=== PATIENT | male | born 1960 | race Caucasian/White ===

== ENCOUNTER 2017-02-19 19:03 | Emergency (ER) | payer MEDICARE ==
[~2017-02-19 19:03] MED LIST: ALBUTEROL5 INH; ALDROXICON PO; AMIT10 PO; BACDS PO; COMBIVENT RESPIM4 GM INH; DULERA 200 MCG/13 GM INH; DUONEB INH; FLORASTOR250 MG PO; HABIT21 TOP; K500 PO; LISINOPRIL40 MG PO; MIRALAXPKT PO; NATURA2 OP; NICODERM C21 MG/241 TOP; PERCOCET1 TA4 PO; PROTONIX PO; ROXICODONE15 MG PO; SEPTRA1 TAB PO; T PO; ZYVOXPO PO
[2017-02-19 21:10] LABS: BASOPHILS 0.8 %; BASOPHILS ABSOLUTE 0.06 10/3/uL (0.0-0.16); EOSINOPHILS 2.7 %; EOSINOPHILS ABSOLUTE 0.21 10/3/uL (0.0-0.53); IMMATURE GRANULOCYTES 0.1 %; IMMATURE GRANULOCYTES ABSOLUTE 0.01 10/3/uL (0.0-0.11); LYMPHOCYTES 25.6 %; LYMPHOCYTES ABSOLUTE 2.01 10/3/uL (0.67-4.30); MEAN CORPUS HGB CONC 33.3 g/dL (32.0-36.0); MEAN CORPUSCULAR HEMOGLOB 31.8 pg (26.0-34.0); MEAN CORPUSCULAR VOLUME 95.3 fL (80-100); MEAN PLATELET VOLUME 9.2 fL (9.2-13.0); MONOCYTES 8.4 %; MONOCYTES ABSOLUTE 0.66 10/3/uL (0.21-1.20); NEUTROPHILS 62.4 %; NEUTROPHILS ABSOLUTE 4.91 10/3/uL (2.02-8.40); PLATELET COUNT 234 10/3/uL (150-400); RBC DISTRIBUTION WIDTH 14.6 % (12.0-16.0); RED CELL COUNT 4.72 10/6/uL (4.7-6.1); WHITE BLOOD CELLS 7.9 10/3/uL (4.5-10.5)
[2017-02-19 21:11] LABS: MANUAL DIFF NO %
[2017-02-19 21:27] LABS: ALBUMIN 3.1 G/DL (3.5-5.0); ALKALINE PHOSPHATASE 95 U/L (45-117); BUN (BLOOD UREA NITROGEN) 10 MG/DL (6-23); CALCIUM, SERUM 8.5 MG/DL (8.5-10.4); CHLORIDE, SERUM 108 MMOL/L (96-112); CO2 (CARBON DIOXIDE) 30 MMOL/L (24-34); GFR AFRICAN AMERICAN 111 ML/MIN (>=60); GFR NON AFRICAN AMERICAN 96 ML/MIN (>=60); GLOBULIN 3.1 G/DL (2.5-4.1); GLUCOSE, SERUM 88 MG/DL (60-99); SGOT(AST) 10 U/L (5-40); SGPT(ALT) 18 U/L (5-65); SODIUM, SERUM 141 MMOL/L (135-148); TOTAL BILIRUBIN 0.8 MG/DL (0-1.2); TOTAL PROTEIN 6.2 G/DL (6.0-8.5)
[2017-02-19 22:27] LABS: ASCORBIC ACID (UR NOT ORDER) NEG (NEG); BILIRUBIN, URINE NEGATIVE (NEG); ER URINALYSIS TAT 0 Hrs 12 Mins; KETONE, URINE NEGATIVE (NEG); LEUKOCYTE ESTERASE(NOT OR NEG (NEG); NITRITE (URINE) NEG (NEG); WBC (NOT ORDERED) (RFLEX) 1 (0-5)
[2017-06-06] MEDS ORDERED: IPRA17AE INH (10:57)
[2017-06-06] MEDS ORDERED: SYMBICORT 80/4.1 INH INH (10:57)
[2017-06-06] MEDS ORDERED: OXYCON20 PO (10:58)
[2017-06-06] MEDS ORDERED: REQUIP1 PO (10:58)
[2017-06-06] MEDS ORDERED: DUONEB INH (10:58)
[2017-06-06] MEDS ORDERED: WELLSR150 PO (10:59)
[2017-06-06] MEDS ORDERED: ROXICODONE30 MG PO (11:00)
[2017-06-06] MEDS ORDERED: PROZAC40 MG PO (11:00)
[2017-06-06] MEDS ORDERED: HCTZ12.5 PO (11:01)
[2017-06-06] MEDS ORDERED: COMBIVENT RESPIM4 GM INH (11:01)
[2017-06-06] MEDS ORDERED: LISINOPRIL40 MG PO (11:02)
[2017-06-16] MEDS ORDERED: HALF81 PO (12:33)
[2017-06-16] MEDS ORDERED: LIPITOR40 PO (12:34)
[2017-06-16] MEDS ORDERED: COREG3 PO (12:34)
[2017-06-16] MEDS ORDERED: BUM1 PO (12:34)
== END 2017-02-19 22:36 | disposition home or self-care (01) ==
LOC: ER 19:03
PROVIDERS: Emergency Medicine
DX: R10.817 Generalized abdominal tenderness (principal); I10 Essential (primary) hypertension; G47.30 Sleep apnea, unspecified; J44.9 Chronic obstructive pulmonary disease, unspecified; K21.9 Gastro-esophageal reflux disease without esophagitis; F17.200 Nicotine dependence, unspecified, uncomplicated; Z86.14 Personal history of Methicillin resistant Staphylococcus aureus infection; Z87.442 Personal history of urinary calculi; Z85.858 Personal history of malignant neoplasm of other endocrine glands; Z88.5 Allergy status to narcotic agent; Z79.899 Other long term (current) drug therapy
CPT/HCPCS: 74176; 80053; 81001; 83605; 83690; 85025; 96374; 99284; J1170; J2405

== ENCOUNTER 2017-06-19 19:48 | Inpatient (IN) | payer MEDICARE ==
[~2017-06-19] VITALS: Ht 185.4 cm; Wt 133.4 kg
--- NOTE | ~2017-06-19 | DS ---
Discharge Summary [facility] [address] [place]. [address] NAME: JODY GARIBAY : 64 STATUS : DIS IN PAT#: [id number] AGE: 57 ADM/REG DATE : 06/20/17 MR#: [id number] REPORT SERV DATE: 06/25/17 DICTATED BY: AMILCAR JOSHUA DATE: 06/24/17 REPORT STATUS : Draft TRANSCRIBED BY: MODL DATE: 06/24/17 ADMISSION DATE: 06/20/2017 DISCHARGE DATE: 06/24/2017 DISCHARGE DIAGNOSES: 1. Right lower extremity cellulitis. 2. 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 3. Episodic and nonsustained ventricular tachycardia. 4. The patient is dependent on LifeVest. 5. Chronic pain with narcotic dependence. 6. Obstructive sleep apnea, noncompliant with CPAP. 7. A recent cardiac cath complicated by pseudoaneurysm of right femoral artery, status post thrombin injection. CONSULTANTS: Cardiology. PROCEDURES: None. HOSPITAL COURSE: This is a 57-year-old gentleman who was admitted to the hospital with acute on chronic congestive heart failure exacerbation. For details, please refer to excellent H and P dictated by Dr. Lupe Vásquez. In summary, the patient was admitted and was given IV Bumex diuresis. Also, the patient was noted to have a right leg cellulitis for which the patient was treated with IV antibiotics. The patient was also seen and evaluated by Cardiology, who agreed with the above plans. The patient did well overall throughout the hospital stay, but he did have episodic nonsustained ventricular tachycardia for which the patient was seen by EP Cardiology who after having followed the patient for several days, decided the patient did not meet the criteria for ICD implantation as of yet. The patient is to have an outpatient echocardiogram done in the next two to three weeks and the decision will be made then to see if the patient would need an ICD or not. Of note, the patient's systolic congestive heart failure is dilated in nature. The patient's cellulitis since had a fluctuating course with good days and bad days, but ultimately by the day of discharge, the patient's white blood cell count had normalized and the patient's procalcitonin level was found to be negative. The patient still have the redness and tenderness over his right lower extremity, which may be residual inflammation. Also because the patient has some fluctuating course, especially when he was on Ancef, his antibiotic therapy was escalated up to vancomycin. The patient is now being discharged home with a current short course of clindamycin along with probiotics. DISPOSITION: Home. DISCHARGE MEDICATIONS: 1. Clindamycin 600 mg p.o. q.6 hours x3 days. 2. Probiotics one capsule p.o. with meals for one week. 3. Coreg was increased from 3.125 mg to 6.25 mg. 4. Otherwise, no medication changes. Discharge Summary [place] [address] [place]. [address] NAME: JODY GARIBAY : 64 STATUS : DIS IN [facility]#: [id number] AGE: 57 ADM/REG DATE : 06/20/17 MR#: [id number] REPORT SERV DATE: 06/25/17 DICTATED BY: AMILCAR JOSHUA DATE: 06/24/17 REPORT STATUS : Draft TRANSCRIBED BY: GLENDY DATE: 06/24/17 FOLLOWUP: 1. Please follow up with PCP in the next one to two weeks. 2. Please follow up with Dr. Corral as instructed. 3. The patient is to have an outpatient echocardiogram in the next two to three weeks. 4. The patient will be seen by home health since the patient is being discharged with a diagnosis of congestive heart failure exacerbation. A total of 35 minutes spent in coordinating this patient's discharge today. OLEGARIO/GLENDY Amilcar Joshua MD / [id number] CC: Amilcar Joshua MD
--- NOTE | ~2017-06-19 | CN ---
Consultation Report [place] [id number] [facility] [place]. [address] NAME: JODY GARIBAY : 64 STATUS : ADM IN [facility]#: [id number] AGE: 57 ADM/REG DATE : 06/20/17 MR#: [id number] REPORT SERV DATE: 06/21/17 DICTATED BY: DATE: REPORT STATUS : Draft TRANSCRIBED BY: MODL DATE: 06/20/17 CONSULTATION NOTE DATE OF CONSULTATION: 06/20/2017 REASON FOR CONSULTATION: Ventricular tachycardia. BRIEF HISTORY OF PRESENT ILLNESS: This is a 57-year-old male, past medical history significant for nonischemic cardiomyopathy with ejection fraction 20%, nonsustained ventricular tachycardia, and COPD, who was admitted and treated for acute on chronic systolic heart failure recently with diuresis. He had a cardiac catheterization done at that time, which showed no coronary disease, and ejection fraction 22%. The patient went home and returned with increasing shortness of breath. Once again, was found to be in congestive heart failure. The patient did leave his prior hospitalization with a LifeVest. He has had no therapies from his LifeVest. Currently, he has shortness of breath that is improving. He denies chest pain. He has had lower extremity swelling. PAST MEDICAL HISTORY: 1. Nonischemic cardiomyopathy. 2. Acute on chronic CHF. 3. COPD. 4. Pseudoaneurysm of the right groin. 5. Obstructive sleep apnea, not using CPAP. 6. Nonsustained ventricular tachycardia. 7. Obesity. 8. Gastroesophageal reflux disease. FAMILY HISTORY: Positive for end-stage renal disease in his father. SOCIAL HISTORY: The patient continues to smoke a pack a day. He denies alcohol use. Denies illegal drug use. REVIEW OF SYSTEMS: All other systems reviewed are negative. PHYSICAL EXAMINATION: VITAL SIGNS: The patient has a temperature of 96.4, his heart rate is 94 beats per minute, blood pressure 129/86, he is satting 92% on nasal cannula 2 L. GENERAL: He is in no acute distress. HEENT: Normocephalic, atraumatic. NEURO: Grossly intact. RESPIRATORY: Decreased breath sounds throughout. CARDIOVASCULAR: Regular rate and rhythm with ectopy. No murmurs, rubs, or gallops appreciated. Consultation Report [place] [address] [facility] [place]. [address] NAME: JODY GARIBAY : 64 STATUS : ADM IN PAT#: [id number] AGE: 57 ADM/REG DATE : 06/20/17 MR#: [id number] REPORT SERV DATE: 06/21/17 DICTATED BY: DATE: REPORT STATUS : Draft TRANSCRIBED BY: GLENDY DATE: 06/20/17 ABDOMEN: Obese with normal bowel sounds. EXTREMITIES: 1 to 2+ lower extremity edema below his knees. Telemetry monitoring demonstrated PVCs with couplets and triplets seen. One episode of nonsustained ventricular tachycardia. EKG showed sinus rhythm with PACs, incomplete right bundle branch block, heart rate of 96 beats per minute. ASSESSMENT: 1. Nonsustained ventricular tachycardia. 2. Nonischemic cardiomyopathy. 3. Chronic obstructive pulmonary disease. 4. Obstructive sleep apnea. PLAN: 1. The patient has nonsustained ventricular tachycardia. He is currently taking BiDil 20/37.5 along with Altace 2.5 mg daily and carvedilol 3.125 mg b.i.d. We will continue his current medical therapy. If the patient continues to have multiple episodes of nonsustained ventricular tachycardia, we will consider him for implantable ICD and stop his LifeVest at that time if the patient meets the criteria per the guidelines. 2. For COPD, management per primary team. 3. For his acute on chronic CHF, he will continue his diuresis, continue medications. 4. For sleep apnea, the patient has been told to be compliant with his CPAP, although this will be unlikely. SARAH/GLENDY Jody Corral MD / [id number] CC: MD Carlos Munoz M.D., F.A.C.C.
--- NOTE | ~2017-06-19 | CN ---
Consultation Report [facility] [address] [place]. [address] NAME: JODY GARIBAY : 64 STATUS : ADM IN [facility]#: [id number] AGE: 57 ADM/REG DATE : 06/20/17 MR#: [id number] REPORT SERV DATE: 06/20/17 DICTATED BY: CARLOS CASTILLO DATE: 06/20/17 REPORT STATUS : Draft TRANSCRIBED BY: MODL DATE: 06/20/17 CARDIOLOGY CONSULTATION DATE OF CONSULTATION: HISTORY OF PRESENT ILLNESS: The patient is a 57-year-old white male, who is status post cardiac catheterization on 06/07/2017, which showed normal coronary arteries and left ventricular ejection fraction of 20%. The patient was discharged on treatment for congestive heart failure and with a LifeVest. He had a postop pseudoaneurysm that was treated with thrombin injection by Vascular Surgery. He now presents with complaints of increasing pedal edema, worse on the right side. He does not have any chest pain or significant dyspnea. PAST MEDICAL HISTORY: Remarkable for dilated cardiomyopathy, nonsustained ventricular tachycardia, COPD, and hypertension. SOCIAL HISTORY: The patient smoked until this admission. FAMILY HISTORY: Positive for coronary disease. REVIEW OF SYSTEMS: The patient denies cough, wheeze, sputum production, vomiting, diarrhea, or dysuria. PHYSICAL EXAMINATION: VITAL SIGNS: Blood pressure is 139/64, heart rate is 80 and regular, respirations 16. GENERAL: The patient does not appear to be in any acute distress. ENT: Unremarkable. NECK: Shows no jugular venous distention with good carotid upstroke. CHEST: Clear. CARDIOVASCULAR: The PMI is lateral to the mid clavicular line. S1 is normal. S2 is narrowly split. S3 is present. ABDOMEN: Soft and nontender with normal bowel sounds. EXTREMITIES: Remarkable for 2+ ankle edema bilaterally with some venous stasis changes and erythema. Pulses are 2+ and equal. He is tender to palpation in the right medial thigh. NEUROLOGIC: The patient is oriented x3 with appropriate affect. IMPRESSION: 1. Acute on chronic congestive heart failure secondary to dilated cardiomyopathy. 2. Chronic obstructive pulmonary disease. 3. Hypertension. 4. Status post recent thrombin injection for pseudoaneurysm of right femoral artery. PLAN: 1. Continue home medications. Consultation Report [facility] [address] [place]. [address] NAME: JODY GARIBAY : 64 STATUS : ADM IN PAT#: [id number] AGE: 57 ADM/REG DATE : 06/20/17 MR#: [id number] REPORT SERV DATE: 06/20/17 DICTATED BY: CARLOS CASTILLO DATE: 06/20/17 REPORT STATUS : Draft TRANSCRIBED BY: MODL DATE: 06/20/17 2. Deep vein thrombosis scan and ultrasound of right groin. 3. We will ask EP to see patient regarding the current nonsustained ventricular tachycardia. SS/GLENDY Carlos Castillo M.D., F.A.C.C. / [id number] CC: Amilcar Arredondo MD
--- NOTE | ~2017-06-19 | HP ---
History And Physical [address] [place]. [address] NAME: JODY GARIBAY : 64 STATUS : ADM IN [facility]#: [id number] AGE: 57 ADM/REG DATE : 06/20/17 MR#: [id number] REPORT SERV DATE: 06/20/17 DICTATED BY: LUPE BATES DATE: 06/20/17 REPORT STATUS : Draft TRANSCRIBED BY: MODL DATE: 06/20/17 DATE OF ADMISSION: 06/20/2017 CHIEF COMPLAINT: Shortness of breath and lower extremity edema. HISTORY OF PRESENT ILLNESS: A 57-year-old, white male with history of mixed diastolic systolic nonischemic cardiomyopathy and heart failure just discharged two days ago comes in complaining of increasing shortness of breath and lower extremity edema. He had a cardiac catheterizations at our facility by Dr. Castillo which showed no evidence of coronary artery disease. Because he has severe systolic dysfunction AICD was recommended. The patient was sent home with a life vest. He did develop a right groin pseudoaneurysm after heart catheterization. He does continue to smoke and he does have obstructive sleep apnea. He is not compliant with CPAP. Today, he was noted to be somewhat hypoxemic, thus admission was recommended. PAST MEDICAL HISTORY: 1. Acute systolic-diastolic chronic congestive heart failure. 2. Nonischemic cardiomyopathy. 3. History of right groin pseudoaneurysm after heart catheterization. 4. COPD. 5. Obstructive sleep apnea, not compliant with CPAP. 6. History of nonsustained ventricular tachycardia. 7. Gastroesophageal reflux disease. 8. Super obesity. 9. Chronic pain. 10.Previous right-sided diagram paralysis. 11.Stable left adrenal adenoma. 12.Nephrolithiasis. PAST SURGICAL HISTORY: 1. C-spine surgery x3. 2. Lumbar spine surgery x5. 3. Bilateral hip replacements. 4. Right shoulder surgery. 5. Appendectomy. 6. Right diaphragm surgery. ALLERGIES: TO MORPHINE, HYDROCODONE, AND TRAMADOL. SOCIAL HISTORY: Smokes a pack a day. Lives with son. Disabled. Does not use alcohol. FAMILY HISTORY: Positive for end-stage renal disease in his father. FAMILY HISTORY: Heart disease. HOME MEDICATIONS: Reviewed and attached. History And Physical [address] [address] NAME: JODY GARIBAY : 64 STATUS : ADM IN [facility]#: [id number] AGE: 57 ADM/REG DATE : 06/20/17 MR#: [id number] REPORT SERV DATE: 06/20/17 DICTATED BY: LUPE BATES DATE: 06/20/17 REPORT STATUS : Draft TRANSCRIBED BY: GLENDY DATE: 06/20/17 REVIEW OF SYSTEMS: CONSTITUTIONAL: No fever, sweats, or rigors. EYES: No blurred or double vision, vision loss or glaucoma. HEENT: No headache, hearing loss, or tinnitus. CARDIOVASCULAR: No chest pain, palpitations, or syncope. Does have edema, dyspnea on exertion, PND and orthopnea. RESPIRATORY: Has had a cough. No wheezing. No pleuritic pain. GASTROINTESTINAL: No nausea, vomiting, hematemesis, or abdominal pain. MUSCULOSKELETAL: He does have arthralgia, arthritis. INTEGUMENT: No rash suspicious skin lesions. He does have some chronic erythema of lower extremities. NEUROLOGIC: No memory loss, gait disturbance, weakness. HEMATOLOGIC: No anemia, iron deficiency, or B12 deficiency. PSYCHIATRIC: No depression, bipolar, or anxiety. : No dysuria, hematuria, or nephrolithiasis. ENDOCRINE: No diabetes or thyroid disease. He does have increased cholesterol. PHYSICAL EXAMINATION: VITAL SIGNS: Blood pressure on admission was elevated at 224/134, temp 90.2, pulse 89, respirations 20, and O2 saturation 91% on room air. CONSTITUTIONAL: Alert and appropriate. PSYCHIATRIC: Oriented x3. Memory intact. Affect appropriate. HEENT: Atraumatic and normocephalic. Oral palate without lesion. EYES: Pupils reactive, anicteric. NECK: No adenopathy. Supple. No thyromegaly or masses. RESPIRATORY: Bibasilar crackles. CARDIOVASCULAR: Regular rate and rhythm. Distant heart sounds. No carotid or femoral bruits. Distal pulses diminished. ABDOMEN: Soft and nontender. No masses. SKIN: He has bilateral dependent erythema with 3 to 4+ lower extremity, edema of lower extremities. NEUROLOGIC: Moves all four extremities. Cranial nerves 2 through 12 intact. LYMPHATIC: No adenopathy in the neck, axilla, or femoral region. MUSCULOSKELETAL: Range of motion intact in upper and lower extremities. LABORATORY DATA: Hemoglobin 15.4, white count 8.8, and platelets 314. Sodium 138, potassium 4, BUN 21, creatinine 8.8, glucose 102, and Mag 1.5. Chest x-ray: Cardiomegaly. No interstitial edema. IMPRESSION/PLAN: 1. Acute on chronic mixed systolic-diastolic heart failure. We will give IV Bumex, but otherwise continue medications. We will also add BiDil to attempt to control blood pressure better. 2. Chronic pain. History And Physical [address] [place]. [address] NAME: JODY GARIBAY : 64 STATUS : ADM IN PAT#: [id number] AGE: 57 ADM/REG DATE : 06/20/17 MR#: [id number] REPORT SERV DATE: 06/20/17 DICTATED BY: LUPE BATES DATE: 06/20/17 REPORT STATUS : Draft TRANSCRIBED BY: GLENDY DATE: 06/20/17 3. History of nonsustained ventricular tachycardia. We will need automatic implantable cardioverter-defibrillator in the future. 4. Possible bilateral lower extremity cellulitis. We will give one dose of IV vancomycin, but believe this is just from dependent edema. 5. Suspect noncompliance. 6. Obstructive sleep apnea, noncompliant with CPAP. 7. Recent cardiac cath. [facility]/GLENDY Lupe Bates MD / [id number] CC: MD Carlos Munoz M.D., F.A.C.C.
[~2017-06-19 19:48] MED LIST changes: +BUM1 PO; +COREG3 PO; +HALF81 PO; +HCTZ12.5 PO; +IPRA17AE INH; +LIPITOR40 PO; +OXYCON20 PO; +PROZAC40 MG PO; +REQUIP1 PO; +ROXICODONE30 MG PO; +SYMBICORT 80/4.1 INH INH; +WELLSR150 PO
[2017-06-19 20:56] LABS: BASOPHILS 0.5 %; BASOPHILS ABSOLUTE 0.04 10/3/uL (0.0-0.16); EOSINOPHILS ABSOLUTE 0.26 10/3/uL (0.0-0.53); ER CBC TAT 0 Hrs 07 Mins; HEMATOCRIT 46.1 % (40.0-51.0); HEMOGLOBIN 15.4 g/dL (13.6-17.8); IMMATURE GRANULOCYTES 0.2 %; IMMATURE GRANULOCYTES ABSOLUTE 0.02 10/3/uL (0.0-0.11); LYMPHOCYTES 18.5 %; LYMPHOCYTES ABSOLUTE 1.62 10/3/uL (0.67-4.30); MEAN CORPUS HGB CONC 33.4 g/dL (32.0-36.0); MEAN CORPUSCULAR VOLUME 95.8 fL (80-100); MEAN PLATELET VOLUME 9.6 fL (9.2-13.0); MONOCYTES 6.2 %; MONOCYTES ABSOLUTE 0.54 10/3/uL (0.21-1.20); NEUTROPHILS 71.6 %; NEUTROPHILS ABSOLUTE 6.29 10/3/uL (2.02-8.40); PLATELET COUNT 314 10/3/uL (150-400); RBC DISTRIBUTION WIDTH 15.1 % (12.0-16.0); RED CELL COUNT 4.81 10/6/uL (4.7-6.1); WHITE BLOOD CELLS 8.8 10/3/uL (4.5-10.5)
[2017-06-19 21:00] LABS: MANUAL DIFF NO %
[2017-06-19 21:05] LABS: INTERNATIONAL NORMAL RATI 1.1 UNITS (-); PROTIME (NOT ORD) 13.6 SEC (12.0-14.5)
[2017-06-19 21:06] LABS: PARTIAL THROMBO TIME 33.2 SEC (22.5-37.2)
[2017-06-19 21:14] LABS: CALCIUM, SERUM 8.6 MG/DL (8.5-10.4); CHLORIDE, SERUM 99 MMOL/L (96-112); CO2 (CARBON DIOXIDE) 32 MMOL/L (24-34); CREATININE 0.88 MG/DL (0.70-1.30); GFR AFRICAN AMERICAN 112 ML/MIN (>=60); GFR NON AFRICAN AMERICAN 97 ML/MIN (>=60); GLUCOSE, SERUM 102 MG/DL (60-99); SODIUM, SERUM 138 MMOL/L (135-148)
[2017-06-19 21:15] LABS: BUN (BLOOD UREA NITROGEN) 21 MG/DL (6-23)
[2017-06-19 21:16] LABS: CHEST PAIN PROFILE TAT 0 Hrs 27 Mins; TROPONIN I 0.08 NG/ML (<0.05)
[2017-06-19] MEDS ORDERED: PROTONIX PO (23:02)
[2017-06-19] MEDS ORDERED: TESTOSTERONE INJ SQ (23:04)
[2017-06-20 05:45] LABS: BASOPHILS 0.5 %; BASOPHILS ABSOLUTE 0.04 10/3/uL (0.0-0.16); EOSINOPHILS 2.2 %; EOSINOPHILS ABSOLUTE 0.18 10/3/uL (0.0-0.53); HEMATOCRIT 44.1 % (40.0-51.0); HEMOGLOBIN 14.4 g/dL (13.6-17.8); IMMATURE GRANULOCYTES 0.2 %; IMMATURE GRANULOCYTES ABSOLUTE 0.02 10/3/uL (0.0-0.11); LYMPHOCYTES 15.1 %; LYMPHOCYTES ABSOLUTE 1.22 10/3/uL (0.67-4.30); MEAN CORPUS HGB CONC 32.7 g/dL (32.0-36.0); MEAN CORPUSCULAR HEMOGLOB 31.4 pg (26.0-34.0); MEAN CORPUSCULAR VOLUME 96.1 fL (80-100); MEAN PLATELET VOLUME 9.4 fL (9.2-13.0); MONOCYTES 7.2 %; MONOCYTES ABSOLUTE 0.58 10/3/uL (0.21-1.20); NEUTROPHILS 74.8 %; NEUTROPHILS ABSOLUTE 6.02 10/3/uL (2.02-8.40); PLATELET COUNT 325 10/3/uL (150-400); RBC DISTRIBUTION WIDTH 15.1 % (12.0-16.0); RED CELL COUNT 4.59 10/6/uL (4.7-6.1); WHITE BLOOD CELLS 8.1 10/3/uL (4.5-10.5)
[2017-06-20 05:46] LABS: MANUAL DIFF NO %
[2017-06-20 05:56] LABS: BUN (BLOOD UREA NITROGEN) 19 MG/DL (6-23); CALCIUM, SERUM 8.8 MG/DL (8.5-10.4); CHLORIDE, SERUM 96 MMOL/L (96-112); CO2 (CARBON DIOXIDE) 33 MMOL/L (24-34); CREATININE 0.88 MG/DL (0.70-1.30); GFR AFRICAN AMERICAN 112 ML/MIN (>=60); GFR NON AFRICAN AMERICAN 97 ML/MIN (>=60); SODIUM, SERUM 136 MMOL/L (135-148)
[2017-06-20 05:58] LABS: GLUCOSE, SERUM 125 MG/DL (60-99)
[2017-06-21 05:26] LABS: BASOPHILS 0.5 %; BASOPHILS ABSOLUTE 0.04 10/3/uL (0.0-0.16); EOSINOPHILS 2.3 %; EOSINOPHILS ABSOLUTE 0.18 10/3/uL (0.0-0.53); HEMOGLOBIN 14.7 g/dL (13.6-17.8); IMMATURE GRANULOCYTES 0.3 %; IMMATURE GRANULOCYTES ABSOLUTE 0.02 10/3/uL (0.0-0.11); LYMPHOCYTES 17.8 %; LYMPHOCYTES ABSOLUTE 1.41 10/3/uL (0.67-4.30); MEAN CORPUS HGB CONC 32.7 g/dL (32.0-36.0); MEAN CORPUSCULAR HEMOGLOB 31.1 pg (26.0-34.0); MEAN CORPUSCULAR VOLUME 95.1 fL (80-100); MEAN PLATELET VOLUME 9.3 fL (9.2-13.0); MONOCYTES 8.5 %; MONOCYTES ABSOLUTE 0.67 10/3/uL (0.21-1.20); NEUTROPHILS 70.6 %; PLATELET COUNT 331 10/3/uL (150-400); RBC DISTRIBUTION WIDTH 15.3 % (12.0-16.0); RED CELL COUNT 4.73 10/6/uL (4.7-6.1); WHITE BLOOD CELLS 7.9 10/3/uL (4.5-10.5)
[2017-06-21 05:27] LABS: CALCIUM, SERUM 8.6 MG/DL (8.5-10.4); CHLORIDE, SERUM 96 MMOL/L (96-112); CO2 (CARBON DIOXIDE) 31 MMOL/L (24-34); CREATININE 1.05 MG/DL (0.70-1.30); GFR AFRICAN AMERICAN 92 ML/MIN (>=60); GFR NON AFRICAN AMERICAN 80 ML/MIN (>=60); GLUCOSE, SERUM 115 MG/DL (60-99); POTASSIUM, SERUM 3.7 MMOL/L (3.5-5.3); SODIUM, SERUM 135 MMOL/L (135-148)
[2017-06-21 05:28] LABS: BUN (BLOOD UREA NITROGEN) 23 MG/DL (6-23); MANUAL DIFF NO %
[2017-06-22 06:50] LABS: BASOPHILS 0.5 %; BASOPHILS ABSOLUTE 0.04 10/3/uL (0.0-0.16); EOSINOPHILS 2.6 %; HEMATOCRIT 45.5 % (40.0-51.0); HEMOGLOBIN 14.8 g/dL (13.6-17.8); IMMATURE GRANULOCYTES 0.3 %; IMMATURE GRANULOCYTES ABSOLUTE 0.02 10/3/uL (0.0-0.11); LYMPHOCYTES 19.7 %; LYMPHOCYTES ABSOLUTE 1.53 10/3/uL (0.67-4.30); MEAN CORPUS HGB CONC 32.5 g/dL (32.0-36.0); MEAN CORPUSCULAR HEMOGLOB 31.3 pg (26.0-34.0); MEAN CORPUSCULAR VOLUME 96.2 fL (80-100); MEAN PLATELET VOLUME 8.8 fL (9.2-13.0); MONOCYTES 9.1 %; MONOCYTES ABSOLUTE 0.71 10/3/uL (0.21-1.20); NEUTROPHILS 67.8 %; NEUTROPHILS ABSOLUTE 5.28 10/3/uL (2.02-8.40); PLATELET COUNT 353 10/3/uL (150-400); RBC DISTRIBUTION WIDTH 15.3 % (12.0-16.0); RED CELL COUNT 4.73 10/6/uL (4.7-6.1); WHITE BLOOD CELLS 7.8 10/3/uL (4.5-10.5)
[2017-06-22 06:51] LABS: MANUAL DIFF NO %
[2017-06-22 07:01] LABS: BUN (BLOOD UREA NITROGEN) 21 MG/DL (6-23); CALCIUM, SERUM 8.2 MG/DL (8.5-10.4); CHLORIDE, SERUM 98 MMOL/L (96-112); CO2 (CARBON DIOXIDE) 32 MMOL/L (24-34); CREATININE 1.06 MG/DL (0.70-1.30); GFR AFRICAN AMERICAN 91 ML/MIN (>=60); GFR NON AFRICAN AMERICAN 79 ML/MIN (>=60); SODIUM, SERUM 136 MMOL/L (135-148)
[2017-06-22 07:02] LABS: GLUCOSE, SERUM 82 MG/DL (60-99)
[2017-06-23 03:57] LABS: BASOPHILS 0.3 %; BASOPHILS ABSOLUTE 0.02 10/3/uL (0.0-0.16); EOSINOPHILS 2.1 %; EOSINOPHILS ABSOLUTE 0.15 10/3/uL (0.0-0.53); HEMATOCRIT 44.5 % (40.0-51.0); HEMOGLOBIN 14.6 g/dL (13.6-17.8); IMMATURE GRANULOCYTES 0.4 %; IMMATURE GRANULOCYTES ABSOLUTE 0.03 10/3/uL (0.0-0.11); LYMPHOCYTES 17.2 %; LYMPHOCYTES ABSOLUTE 1.25 10/3/uL (0.67-4.30); MEAN CORPUS HGB CONC 32.8 g/dL (32.0-36.0); MEAN CORPUSCULAR HEMOGLOB 31.7 pg (26.0-34.0); MEAN CORPUSCULAR VOLUME 96.7 fL (80-100); MEAN PLATELET VOLUME 9.1 fL (9.2-13.0); MONOCYTES 8.7 %; MONOCYTES ABSOLUTE 0.63 10/3/uL (0.21-1.20); NEUTROPHILS 71.3 %; NEUTROPHILS ABSOLUTE 5.18 10/3/uL (2.02-8.40); PLATELET COUNT 323 10/3/uL (150-400); RBC DISTRIBUTION WIDTH 15.5 % (12.0-16.0); WHITE BLOOD CELLS 7.3 10/3/uL (4.5-10.5)
[2017-06-23 04:03] LABS: MANUAL DIFF NO %
[2017-06-23 04:11] LABS: BUN (BLOOD UREA NITROGEN) 20 MG/DL (6-23); CALCIUM, SERUM 8.1 MG/DL (8.5-10.4); CHLORIDE, SERUM 100 MMOL/L (96-112); CO2 (CARBON DIOXIDE) 30 MMOL/L (24-34); CREATININE 0.92 MG/DL (0.70-1.30); GFR AFRICAN AMERICAN 108 ML/MIN (>=60); GFR NON AFRICAN AMERICAN 93 ML/MIN (>=60); GLUCOSE, SERUM 83 MG/DL (60-99); POTASSIUM, SERUM 4.1 MMOL/L (3.5-5.3); SODIUM, SERUM 139 MMOL/L (135-148)
[2017-06-23 06:16] LABS: PROCALCITONIN <0.05 ng/mL (<0.5)
[2017-06-24] MEDS ORDERED: COREG6 PO (15:53)
[2017-06-24] MEDS ORDERED: BIDIL20/37 PO (15:54)
[2017-06-24] MEDS ORDERED: ALTA2.5 PO (15:55)
[2017-06-24] MEDS ORDERED: OXYCONTIN15 MG PO (15:58)
[2017-06-24] MEDS ORDERED: FLORASTOR250 MG PO (16:00)
[2017-06-24] MEDS ORDERED: CLEOCIN300 MG PO (16:01)
== END 2017-06-24 16:50 | disposition home health service (06) | DRG 602 ==
LOC: ER 19:48 → ENPENDDIS 06-20 00:55 → 6NO 06-20 00:55
PROVIDERS: Emergency Medicine; Internal Medicine
DX: L03.115 Cellulitis of right lower limb (principal); I50.43 Acute on chronic combined systolic (congestive) and diastolic (congestive) heart failure; I47.2 Ventricular tachycardia; B37.0 Candidal stomatitis; F11.20 Opioid dependence, uncomplicated; I42.0 Dilated cardiomyopathy; E66.01 Morbid (severe) obesity due to excess calories; I11.0 Hypertensive heart disease with heart failure; F17.210 Nicotine dependence, cigarettes, uncomplicated; G89.29 Other chronic pain; G47.33 Obstructive sleep apnea (adult) (pediatric); J44.9 Chronic obstructive pulmonary disease, unspecified; I49.3 Ventricular premature depolarization; Z82.49 Family history of ischemic heart disease and other diseases of the circulatory system; Z87.442 Personal history of urinary calculi; Z96.643 Presence of artificial hip joint, bilateral
CPT/HCPCS: 71020; 80048; 83735; 83880; 84145; 84484; 85025; 85610; 85730; 93005; 93926; 93970; 94640; 96374; 97161-GP; 99285; A9270-GY; J0690; J1170; J3370; J3475